=== PATIENT | female | born 1955 | race Caucasian/White ===

== ENCOUNTER 2019-09-03 15:32 | Emergency (ER) | payer OTHER ==
[2019-09-03 15:49] VITALS: BP 142/63; PULSE 65; TEMP 97.8; BMI 24.7
--- NOTE | 2019-09-03 16:24 | PDOC ---
History of Present Illness - General Chief Complaint: Pain Stated Complaint: LT SHOULDER PAIN Time Seen by Provider: 09/03/19 15:53 History Source: Patient Exam Limitations: No Limitations - History of Present Illness Initial Comments: 09/03/19 16:39 HISTORY OF PRESENT ILLNESS: This is an otherwise healthy 63-year-old woman who had an annual physical 6 months ago presents to the emergency department for evaluation of left shoulder pain for 1 month status post influenza vaccine injection. Patient reports her pain is a 9/10 and worsens with direct pressure as well as flexion of the deltoid muscle on her left arm. Patient denies any trauma other than influenza injection. She denies chest pain, shortness of breath, dizziness, blurry vision, abdominal pain, nausea, vomiting or sweating. No recent travel or sick contacts. PAST MEDICAL HISTORY: Denies past medical history SURGICAL HISTORY: Denies ALLERGIES: No known drug allergies REVIEW OF SYSTEMS General/Constitutional: Denies fever or chills. Denies weakness, weight change. HEENT: Denies change in vision. Denies ear pain or discharge. Denies sore throat. Cardiovascular: Denies chest pain or shortness of breath. Respiratory: Denies cough, wheezing, or hemoptysis. Gastrointestinal: Denies nausea, vomiting, diarrhea or constipation. Denies rectal bleeding. Genitourinary: Denies dysuria, frequency, or change in urination. Musculoskeletal: See HPI Skin and breasts: Denies rash or easy bruising. Neurologic: Denies headache, vertigo, loss of consciousness, or loss of sensation. Psychiatric: Denies depression or anxiety. Endocrine: Denies increased thirst. Denies abnormal weight change. Hematologic/Lymphatic: Denies anemia, easy bleeding, or history of blood clots. Allergic/Immunologic: Denies hives or skin allergy. Denies latex allergy. PHYSICAL EXAM General Appearance: Well-appearing, appropriately dressed. No apparent distress , no intoxication. Respiratory/Chest: Lungs CTAB. No shortness of breath, chest tenderness, respiratory distress, accessory muscle use. No crackles, rales, rhonchi, stridor , wheezing, dullness Cardiovascular: RRR. S1, S2. No JVD, murmur, bradycardia, tachycardia. Vascular Pulses: Radial (R): 2+, radial (L): 2+ Lymphatic: No adenopathy, tenderness. Musculoskeletal/Extremities: Normal inspection. FROM of all extremities, normal capillary refill. Pelvis Stable. No CVA tenderness. No tenderness to extremities, pedal edema, swelling, erythema or deformity. Left deltoid tender to palpation which worsens with abduction of the left shoulder. Integumentary: Appropriate color, dry, warm. No cyanosis, erythema, jaundice or rash Neurologic: seat maker II-XII intact. Fully oriented, alert. Appropriate mood/affect. Motor strength 5/5. No appreciable EOM palsy, facial droop or sensory deficit. Past History - Past Medical History Allergies/Adverse Reactions: Allergies Allergy/AdvReac Type Severity Reaction Status Date / Time No Known Allergies Allergy Verified 09/03/19 15:43 Home Medications: Ambulatory Orders NK [No Known Home Medication] 09/03/19 - Psycho Social/Smoking Cessation Hx Smoking History: Never smoked Number of Cigarettes Smoked Daily: 0 Hx Alcohol Use: No *Physical Exam - Vital Signs Last Vital Signs Temp Pulse Resp BP Pulse Ox 97.8 F 65 16 142/63 100 09/03/19 15:46 09/03/19 15:46 09/03/19 15:46 09/03/19 15:46 09/03/19 15:46 Medical Decision Making - Medical Decision Making 09/03/19 16:36 A/P: 63-year-old woman with left shoulder pain status post receiving influenza injection 08/03/2019 Chest is nontender Lungs clear to auscultation bilaterally Left deltoid tender to palpation with worsening pain upon abduction of left shoulder No bony tenderness or deformity noted Pain the patient is experiencing is most likely musculoskeletal as a result of influenza injection. Given patient's age I will get an x-ray of the shoulder as well as an EKG. I will add laboratory testing if there are any abnormalities on EKG. Reassess 09/03/19 17:11 Shoulder x-ray as read by me: No acute fractures or dislocations noted. Mild bone destruction present to the lateral aspect of the humeral head. AC joint is well approximated. EKG sinus bradycardia with rate of 58. Normal intervals present. No ischemic changes noted. Mild sinus arrhythmia present. I discussed the physical exam findings, ancillary test results and final diagnoses with the patient. I answered all of the patient's questions. The patient was satisfied with the care received and felt comfortable with the discharge plan and treatment plan. The patient will call their primary care physician within 24 hours to arrange follow-up and will return to the Emergency Department with any new, persistent or worsening symptoms. Discharge - Discharge Information Problems reviewed: Yes Clinical Impression/Diagnosis: Injection site reaction Qualifiers: Encounter type: initial encounter Qualified Code(s): T80.90XA - Unspecified complication following infusion and therapeutic injection, initial encounter Condition: Stable Disposition: HOME - Admission No - Follow up/Referral Referrals: Leeroy Grimaldo [Primary Care Provider] - - Patient Discharge Instructions Additional Instructions: Apply warm compresses to affected areas. Take Tylenol or Motrin as needed for pain. Return to the emergency department for any new or worsening symptoms. Thank you very much for choosing us to provide your emergent health care needs. - Post Discharge Activity
--- NOTE | 2019-09-04 10:41 | EKG ---
Test Reason : Blood Pressure : / mmHG Vent. Rate : 051 BPM Atrial Rate : 051 BPM P-R Int : 154 ms QRS Dur : 086 ms QT Int : 448 ms P-R-T Axes : 075 054 047 degrees QTc Int : 412 ms SINUS BRADYCARDIA WITH SINUS ARRHYTHMIA OTHERWISE NORMAL ECG WHEN COMPARED WITH ECG OF 09-SEP-2008 14:46, NO SIGNIFICANT CHANGE WAS FOUND Confirmed by LEWIS BOWIE, STEVE ([id number]) on 09/04/2019 10:41:01 AM Referred By: Confirmed By:STEVE SAUCEDO MD
== END 2019-09-03 17:20 | disposition home or self-care (01) ==
LOC: JERFT 15:32 → JER 15:32 → JERFT 17:20
DX: T88.1XXA Other complications following immunization, not elsewhere classified, initial encounter (principal); M25.512 Pain in left shoulder
CPT/HCPCS: 73030-TC-LT-FY; 93005; 93010; 99282-25

== ENCOUNTER 2020-12-01 05:49 | Emergency (ER) | payer OTHER ==
[2020-12-01] MEDS ORDERED: MECLIZINE HCL 25 MG TABLET (FP) PO ONE ×2 (06:00→07:41)
[2020-12-01] MEDS ORDERED: SODIUM CHLORIDE 1,000 ML IV SCH (06:00)
[2020-12-01] MEDS ORDERED: MECLIZINE HCL 25 MG TABLET (FP) ONE ×2 (06:01→08:12)
[2020-12-01 06:04] VITALS: BMI 27.4
[2020-12-01] MEDS ORDERED: MAG HYDROX/AL HYDROX/SIMETH 30 ML UNIT-DOSE CUP PO ONE (06:13)
[2020-12-01] MEDS ORDERED: FAMOTIDINE 20 MG/50 ML IVPB 20 MG/50 ML MG IVPB ONE ×2 (06:13→06:22)
[2020-12-01] MEDS ORDERED: MAG HYDROX/AL HYDROX/SIMETH 30 ML UNIT-DOSE CUP ONE (06:22)
[2020-12-01 06:40] LABS: BASO % 0.5 % (0-2.0); EOS % 0.5 % (0-4.5); HEMATOCRIT 36.5 % (32.4-45.2); LYMPH % 23.9 % (8-40); MCH 30.3 pg (25.7-33.7); MEAN CELL VOLUME 91.6 fl (80-96); MEAN PLT VOLUME 9.2 fl (7.5-11.1); MONO % 5.5 % (3.8-10.2); NEUT % 69.6 % (42.8-82.8); PLATELET COUNT 275 K/MM3 (134-434); RBC 3.98 M/mm3 (3.60-5.2); RDW 12.6 % (11.6-15.6); WHITE BLOOD COUNT 9.5 K/mm3 (4.0-10.0)
[2020-12-01 06:58] LABS: CHLORIDE 109 mmol/L (98-107); POTASSIUM 4.3 mmol/L (3.5-5.1); SODIUM 142 mmol/L (136-145)
[2020-12-01 07:00] LABS: BLOOD UREA NITROGEN 14.3 mg/dL (7-18); CALCIUM 9.3 mg/dL (8.5-10.1)
[2020-12-01 07:01] LABS: ANION GAP 6 MMOL/L (8-16); CO2 28 mmol/L (21-32); GLUCOSE,RANDOM 134 mg/dL (74-106); LIPASE 122 U/L (73-393); MAGNESIUM 2.1 mg/dL (1.8-2.4)
[2020-12-01 07:03] LABS: CREATININE 0.8 mg/dL (0.55-1.3)
[2020-12-01 07:04] LABS: PHOSPHOROUS 3.3 mg/dL (2.5-4.9); SGOT/AST 17 U/L (15-37); SGPT/ALT 27 U/L (13-61)
[2020-12-01 07:05] LABS: BILIRUBIN,TOTAL 0.7 mg/dL (0.2-1); TOT PROT 7.2 g/dl (6.4-8.2)
[2020-12-01 07:06] LABS: ALK PHOS 77 U/L (45-117)
[2020-12-01 07:51] VITALS: TEMP 98.3
[2020-12-01 10:22] VITALS: BP 142/68; PULSE 68
== END 2020-12-01 10:22 | disposition home or self-care (01) ==
LOC: JER 05:49
PROC: 3E033GC Introduction of Other Therapeutic Substance into Peripheral Vein, Percutaneous Approach (ICD-10-PCS; principal; 2020-12-01)
DX: R42 Dizziness and giddiness (principal)
CPT/HCPCS: 36415; 70450-TC; 71045-TC-FY; 80053; 83690; 83735; 84100; 84484; 85025; 93005; 93010; 96374; 99285-25; C9803; U0003

== ENCOUNTER 2022-04-05 13:00 | Emergency (ER) | payer OTHER ==
[2022-04-05 13:23] VITALS: TEMP 97.7; BMI 26.2
[2022-04-05] MEDS ORDERED: SODIUM CHLORIDE 1,000 ML IV STA (14:18)
[2022-04-05] MEDS ORDERED: KETOROLAC TROMETHAMINE 15 MG/ML VIAL IVPUSH ONE (14:18)
[2022-04-05] MEDS ORDERED: KETOROLAC TROMETHAMINE 30 MG/1 ML VIAL ONE (14:32)
[2022-04-05 15:20] LABS: BASO % 0.6 % (0-2.0); EOS % 1.1 % (0-4.5); HEMATOCRIT 37.3 % (32.4-45.2); LYMPH % 40.2 % (8-40); MCH 29.6 pg (25.7-33.7); MCHC 32.3 g/dl (32.0-36.0); MEAN CELL VOLUME 91.6 fl (80-96); MEAN PLT VOLUME 9.6 fl (7.5-11.1); MONO % 8.9 % (3.8-10.2); NEUT % 49.2 % (42.8-82.8); PLATELET COUNT 268 10^3/uL (134-434); RBC 4.07 M/mm3 (3.60-5.2); RDW 12.5 % (11.6-15.6)
[2022-04-05 15:21] LABS: CALCIUM 9.3 mg/dL (8.5-10.1)
[2022-04-05 15:22] LABS: BLOOD UREA NITROGEN 13.7 mg/dL (7-18)
[2022-04-05 15:24] LABS: CREATININE 0.8 mg/dL (0.55-1.3)
[2022-04-05 15:25] LABS: EPI CELLS 10 /uL (0-25.1); HYALINE CASTS 2 /uL (0-3.1); PH,URINE 5.5 (5.0-8.0); URINE APPEARANCE CLEAR; URINE BACTERIA 17 /uL (0-1359); URINE BILIRUBIN NEGATIVE (NEGATIVE); URINE COLOR YELLOW; URINE GLUCOSE (UA) NEGATIVE (NEGATIVE); URINE KETONE TRACE (NEGATIVE); URINE LEUK ESTERASE 1+ (NEGATIVE); URINE NITRITE NEGATIVE (NEGATIVE); URINE PROTEIN NEGATIVE (NEGATIVE); URINE RBC 5 /uL (0-23.9); URINE UROBILINOGEN 0.2 mg/dL (0.2-1.0); URINE WBC 24 /uL (0-25.8)
[2022-04-05 15:26] LABS: BILIRUBIN,TOTAL 0.9 mg/dL (0.2-1); TOT PROT 7.2 g/dl (6.4-8.2)
[2022-04-05 17:34] VITALS: BP 145/60; PULSE 68
== END 2022-04-05 18:32 | disposition home or self-care (01) ==
LOC: JER 13:00
PROC: 3E0333Z Introduction of Anti-inflammatory into Peripheral Vein, Percutaneous Approach (ICD-10-PCS; principal; 2022-04-05)
PROC: 3E0337Z Introduction of Electrolytic and Water Balance Substance into Peripheral Vein, Percutaneous Approach (ICD-10-PCS; 2022-04-05)
DX: M13.80 Other specified arthritis, unspecified site (principal); M21.612 Bunion of left foot; N39.0 Urinary tract infection, site not specified
CPT/HCPCS: 36415; 73562-TC-LT-FY; 73610-TC-LT-FY; 73630-TC-LT; 80053; 81003; 85025; 87086; 99284-25